=== PATIENT | male | born 1925 | race Caucasian/White ===

== ENCOUNTER 2016-07-20 06:46 | Emergency (ER) | payer OTHER ==
[2016-07-20 06:53] VITALS: TEMP 98.6
--- NOTE | 2016-07-20 06:58 | EDPHY ---
H & P Stated Complaint: DIZZINESS WITH WAKING THIS A.M. ROOM SPINNING Time Seen by Provider: 07/20/16 06:57 HPI/ROS: CHIEF COMPLAINT: Vertigo HISTORY OF PRESENT ILLNESS: The patient presents to the ED after he woke up with vertigo this morning. The patient denies any history of fall or trauma. The patient has no prior history of vertigo, recent upper respiratory infection , acute tenderness or acute hearing loss. The patient denies headache or neck pain. He has no history of cervical manipulation. The patient does have a remote history of prostate cancer. The patient has had undetectable PSAs. The patient did stop taking oral chemotherapeutic agents in June of this year. The patient denies any complaints of acute fever or other concerns. REVIEW OF SYSTEMS: A comprehensive 10 point review of systems is otherwise negative aside from elements mentioned in the history of present illness. Source: Patient Exam Limitations: No limitations - Personal History Current Tetanus/Diphtheria Vaccine: Yes Current Tetanus Diphtheria and Acellular Pertussis (TDAP): Yes - Medical/Surgical History Hx Asthma: No Hx Chronic Respiratory Disease: No Hx Diabetes: No Hx Cardiac Disease: No Hx Renal Disease: Yes Hx Cirrhosis: No Hx Alcoholism: No Hx HIV/AIDS: No Hx Splenectomy or Spleen Trauma: No Other PMH: Prostate cancer and removed , hypertension, bone ca, appy - Social History Smoking Status: Never smoked - Physical Exam Exam: General Appearance: Alert, no distress Eyes: Pupils equal and round no pallor or injection ENT, Mouth: Mucous membranes moist Respiratory: There are no retractions, lungs are clear to auscultation Cardiovascular: Regular rate and rhythm Gastrointestinal: Abdomen is soft and nontender, no masses, bowel sounds normal Neurological: Alert and oriented x4, 5/5 strength noted bilateral upper lower extremities, cranial nerves 2-12 intact, horizontal nystagmus is noted with leftward gaze Skin: Warm and dry, no rashes Musculoskeletal: Neck is supple nontender Extremities: symmetrical, full range of motion Constitutional: Initial Vital Signs Temperature (C) 37.0 C 07/20/16 06:48 Heart Rate 86 07/20/16 06:48 Respiratory Rate 18 07/20/16 06:48 Blood Pressure 119/63 07/20/16 06:48 O2 Sat (%) 93 07/20/16 06:48 O2 Delivery Mode Room Air Allergies/Adverse Reactions: iodine [Iodine] Allergy (Unknown, Verified 07/20/16 06:53) Home Medications: Medication Instructions Recorded Lisinopril [Zestril 40 mg (*)] 40 mg PO HS 01/27/10 amLODIPine BESYLATE [Norvasc 10 mg 10 mg PO DAILY 01/27/10 (*)] Abiraterone Acetate [Zytiga] 250 mg PO DAILY06 03/04/13 Aspirin [Aspirin 325 mg (*)] 325 mg PO HS 11/05/14 Metoprolol Succinate Xr [Toprol Xl 25 mg PO DAILY #30 tab.sr 11/07/14 25 mg (*)] Meclizine HCl [Meclizine HCl 25 mg 25 mg PO BID PRN #20 tab 07/20/16 (RX,OTC)] Medical Decision Making ED Course/Re-evaluation: I reviewed the patient's past medical records including evidence of an undetectable PSA. The patient was given oral Zofran and meclizine for typical symptoms of peripheral vertigo. The patient is neurologically intact without evidence of central vertigo. Patient was re-evaluated at 8:00 a.m. and his vertigo has resolved. He is ambulatory with no acute complaints. The patient will be discharged home with a prescription for meclizine to use as needed. He is given customary return precautions. Differential Diagnosis: Differential diagnosis considered includes benign positional vertigo, labyrinthitis, stroke, TIA - Data Points Medications Given: Discontinued Medications Meclizine HCl (Meclizine Hcl) 25 mg PO EDNOW ONE Stop: 07/20/16 07:09 Last Admin: 07/20/16 07:16 Dose: 25 mg Ondansetron HCl (Zofran Odt) 4 mg PO EDNOW ONE Stop: 07/20/16 07:10 Last Admin: 07/20/16 07:16 Dose: 4 mg Departure - Departure Disposition: Home, Routine, Self-Care Clinical Impression: Vertigo Condition: Good Instructions: Vertigo (ED) Additional Instructions: 1. Use meclizine as needed for vertigo. 2. Return to the ED for severe headache, numbness, weakness, slurred speech or other concerns. 3. Follow up with your primary care provider as needed. Referrals: Gerard Colunga MD [Primary Care Provider] - As per Instructions
[2016-07-20] MEDS ORDERED: MECLIZINE HCL 25 MG TAB PO ONE (07:08)
[2016-07-20] MEDS ORDERED: ONDANSETRON DISINTEGRATING 4 MG TAB PO ONE (07:09)
[2016-07-20 08:10] VITALS: BP 150/81; PULSE 88; RESP 16; O2SAT 91
== END 2016-07-20 08:10 | disposition home or self-care (01) ==
DX: R42 Dizziness and giddiness (principal); I10 Essential (primary) hypertension; Z85.46 Personal history of malignant neoplasm of prostate; Z85.830 Personal history of malignant neoplasm of bone; Z79.82 Long term (current) use of aspirin